=== PATIENT | male | born 1990 | race Caucasian/White ===

== ENCOUNTER 2017-02-19 20:09 | Emergency (ER) | payer OTHER ==
[~2017-02-19] VITALS: Ht 177.8 cm; Wt 90.7 kg
[2017-02-19 20:23] VITALS: BP 139/97
[2017-02-19] MEDS ORDERED: DIPHTH,PERTUSS(ACELL),TET TOX 0.5 ML DISP.SYRIN. VAX IM ONE (21:15)
--- NOTE | 2017-02-19 22:16 | RAD ---
CT scan of the facial bones without contrast 02/19/2017 CLINICAL HISTORY: Work injury. Nasal trauma. Nosebleed. TECHNIQUE: Unenhanced, contiguous, 0.625 mm axial sections were obtained through the facial bones and orbits. 2 mm reconstructed sagittal and axial and coronal images were obtained. One or more of the following individualized dose reduction techniques were utilized for this study: 1. Automated exposure control. 2. Adjustment of the mA and/or kV according to patient size. 3. Use of iterative reconstruction technique. FINDINGS: No facial bone fracture is seen. Both orbits are intact. The paranasal sinuses are well aerated and are clear. IMPRESSION: No facial bone fracture is seen. Electronically signed by: Emmanuel Mac MD (02/19/2017 10:12 PM) [facility]
--- NOTE | 2017-02-19 22:30 | PHYS DOC ---
Past Medical History Past Medical History: Other Additional Past Medical Histor: ITP, ADHD Past Surgical History: Other Additional Past Surgical Histo: hernia rx, R leg. Alcohol Use: None Drug Use: None Adult General Chief Complaint Chief Complaint: FACE PAIN [facility] HPI Patient is a 27 year old male who presents with nose contusion. Patient works for [employer] and states a piece of car part that was above his head hit him on the nose. Review of Systems Review of Systems Constitutional: Denies fever or chills [] Eyes: Denies change in visual acuity, redness, or eye pain [] HENT: Nose contusion. Denies nasal congestion or sore throat [] Respiratory: Denies cough or shortness of breath [] Cardiovascular: No additional information not addressed in HPI [] GI: Denies abdominal pain, nausea, vomiting, bloody stools or diarrhea [] : Denies dysuria or hematuria [] Musculoskeletal: Denies back pain or joint pain [] Integument: Denies rash or skin lesions [] Neurologic: Denies headache, focal weakness or sensory changes [] Endocrine: Denies polyuria or polydipsia [] Current Medications Current Medications Current Medications Medications (Trade) Dose Ordered Sig/Jb Start Time Stop Time Status Last Admin Dose Admin Diphtheria/ Tetanus/Acell Pertussis (Boostrix) 0.5 ml ONCE ONCE 02/19/17 21:15 02/19/17 21:16 DC 02/19/17 20:58 0.5 ML Allergies Allergies Allergies Coded Allergies Type Severity Reaction Last Updated Verified No Known Drug Allergies 02/19/17 No Physical Exam Physical Exam Constitutional: Well developed, well nourished, no acute distress, non-toxic appearance. [] HENT: Normocephalic, atraumatic, bilateral external ears normal, oropharynx moist, no oral exudates, nasal bridge with mild swelling Eyes: PERRLA, EOMI, conjunctiva normal, no discharge. [] Neck: Normal range of motion, no tenderness, supple, no stridor. [] Cardiovascular:Heart rate regular rhythm, no murmur [] Lungs & Thorax: Bilateral breath sounds clear to auscultation [] Abdomen: Bowel sounds normal, soft, no tenderness, no masses, no pulsatile masses. [] Skin: Warm, dry, no erythema, no rash. [] Back: No tenderness, no CVA tenderness. [] Extremities: No tenderness, no cyanosis, no clubbing, ROM intact, no edema. [] Neurologic: Alert and oriented X 3, normal motor function, normal sensory function, no focal deficits noted. [] Psychologic: Affect normal, judgement normal, mood normal. [] Current Patient Data Vital Signs Vital Signs Date Time Temp Pulse Resp B/P (MAP) Pulse Ox O2 Delivery O2 Flow Rate FiO2 02/19/17 20:23 98.1 113 22 100 Room Air 98.1 EKG EKG [] Radiology/Procedures Radiology/Procedures []PROCEDURE: CT MAXILLOFACIAL WO CONTRAST CT scan of the facial bones without contrast 02/19/2017 CLINICAL HISTORY: Work injury. Nasal trauma. Nosebleed. TECHNIQUE: Unenhanced, contiguous, 0.625 mm axial sections were obtained through the facial bones and orbits. 2 mm reconstructed sagittal and axial and coronal images were obtained. One or more of the following individualized dose reduction techniques were utilized for this study: 1. Automated exposure control. 2. Adjustment of the mA and/or kV according to patient size. 3. Use of iterative reconstruction technique. FINDINGS: No facial bone fracture is seen. Both orbits are intact. The paranasal sinuses are well aerated and are clear. IMPRESSION: No facial bone fracture is seen. Electronically signed by: Emmanuel Pereira MD (02/19/2017 10:12 PM) [facility] DICTATED and SIGNED BY: EMMANUEL PEREIRA MD DATE: 02/19/172209 CC: GABRIELLA MUNOZ APRN; NO PCP; NON,STAFF ~ Course & Med Decision Making Course & Med Decision Making Pertinent Labs and Imaging studies reviewed. (See chart for details) Patient has nose contusion after being hit by a car part at work ([employer]), CT of the maxillary facial was negative for any acute findings. Instructed to apply ice to the affected area. Tylenol Motrin for pain. Follow-up with primary care doctor in 1-2 weeks. Dragon Disclaimer Dragon Disclaimer This electronic medical record was generated, in whole or in part, using a voice recognition dictation system. Departure Departure Impression: Primary Impression: Contusion of nose, initial encounter Disposition: HOME, SELF-CARE Condition: STABLE Referrals: NO PCP (PCP) Follow-up with your doctor in one week Patient Instructions: Contusion, [id number] Additional Instructions: You were seen for nose contusion. Your CT of the maxillofacial was negative for any acute findings. Ice the affected area. Take Tylenol/ Motrin for pain. Follow -up with your doctor in 1-2 weeks. GABRIELLA MUNOZ APRN Feb 19, 2017 22:30
== END 2017-02-19 22:40 | disposition home or self-care (01) ==
LOC: ER 20:09
DX: S00.33XA Contusion of nose, initial encounter (principal); F90.9 Attention-deficit hyperactivity disorder, unspecified type; W22.8XXA Striking against or struck by other objects, initial encounter; Y93.89 Activity, other specified; Y99.8 Other external cause status; Y92.89 Other specified places as the place of occurrence of the external cause
CPT/HCPCS: 70486; 90471; 90715; 99284-25

== ENCOUNTER 2020-02-07 20:26 | Emergency (ER) | payer BC, OTHER ==
[~2020-02-07] VITALS: Ht 177.8 cm; Wt 90.9 kg
[2020-02-07 20:44] VITALS: BP 170/100
--- NOTE | 2020-02-07 20:57 | PHYS DOC ---
Past Medical History Past Medical History: Other Additional Past Medical Histor: ITP, ADHD Past Surgical History: Other Additional Past Surgical Histo: hernia rx, R leg. Smoking Status: Never Smoker Alcohol Use: None Drug Use: None General Adult EDM: Chief Complaint: SHOULDER INJURY HPI: HPI: Patient is a 29 year old M who presents with right shoulder pain s/p fall this afternoon. Patient states that he slipped on some rocks and fell backwards with his right arm outstreched. He is complaining of a constant, dull ache that he rates 3/10. He reports some radiation of the pain down the back of his right arm and the pain is worse with movement. He denies taking any pain medication before arriviing. Review of Systems: Review of Systems: Constitutional: Denies fever or chills Eyes: Denies redness or eye pain HENT: Denies nasal congestion or sore throat Respiratory: Denies cough or shortness of breath Cardiovascular: Denies chest pain or palpitations GI: Denies abdominal pain, nausea, or vomiting : Denies dysuria or hematuria Musculoskeletal: Denies back pain; reports shoulder pain Integument: Denies rash or skin lesions Neurologic: Denies headache or sensory changes Complete systems were reviewed and found to be within normal limits, except as documented in this note. Allergies: Allergies: Allergies Coded Allergies Type Severity Reaction Last Updated Verified No Known Drug Allergies 02/19/17 No Physical Exam: PE: Constitutional: Well developed, well nourished HENT: Normocephalic, atraumatic Eyes: Conjunctiva normal, no discharge Neck: Normal range of motion, supple Lungs & Thorax: No respiratory distress, equal chest rise and fall Abdomen: Soft, no tenderness Skin: Warm, dry, no erythema Back: No tenderness, no CVA tenderness Extremities: Tenderness to palpation of anterior right shoulder. ROM limited due to pain in flexion and extension. UE pulses +2/2 b/l. Sensation intact b/l. Cap refill >2 sec b/l. Neurologic: Alert and oriented X 3, no focal deficits noted Psychologic: Affect normal, judgment normal Current Patient Data: Vital Signs: Vital Signs Date Time Temp Pulse Resp B/P (MAP) Pulse Ox O2 Delivery O2 Flow Rate FiO2 02/07/20 20:44 98.1 107 20 170/100 (123) 98 Room Air 98.1 EKG: EKG: [] Radiology/Procedures: Radiology/Procedures: PROCEDURE: SHOULDER 2+V RIGHT RIGHT SHOULDER , 3 VIEWS Clinical Indication: Reason: pain s/p fall / Spl. Instructions: / History: Comparison: None. Findings: There is subtle lucency of the greater tuberosity and there may be nondisplaced fracture. There is no dislocation. The acromioclavicular and glenohumeral joints are intact. The visualized lung is clear. There is no evidence of a displaced rib fracture. There is no soft tissue abnormality. IMPRESSION: Subtle lucency of the greater tuberosity may be nondisplaced fracture. Electronically signed by: Sukhdeep Mesa MD (02/07/2020 9:05 PM) [facility] Course & Med Decision Making: Course & Med Decision Making 29 yo M presented to the emergency department for right shoulder pain s/p fall. Shoulder XR inconclusive for fracture. Pt placed in shoulder immobilizer and referred to outpatient orthopedic surgery for follow-up. Pain controlled with toradol. Patient stable for discharge with outpatient follow-up with PCP. Discussed findings and plan with patient, who acknowledges understanding and agreement. [] Dragon Disclaimer: Dragon Disclaimer: This electronic medical record was generated, in whole or in part, using a voice recognition dictation system. Departure Departure Impression: Primary Impression: Shoulder injury Qualified Codes: S49.91XA - Unspecified injury of right shoulder and upper arm, initial encounter Disposition: 01 DC HOME SELF CARE/HOMELESS Condition: STABLE ( ) Referrals: NO PCP (PCP) PEG FERGUSON MD Patient Instructions: Shoulder Fract[facility] ([facility]ximal Humerus or Glenoid[facility] Additional Instructions: There are subtle findings concerning for a "hairline" fracture. Please remain in shoulder immobilizer and follow closely with general surgeon for further evaluation. Scripts Orphenadrine Citrate (ORPHENADRINE CITRATE) 100 Mg Tablet.er 100 MG PO BID, #14 TAB Prov: CIRA GUARDADO DO 02/07/20 Hydrocodone/Apap 5-325 (NORCO 5-325 TABLET) 1 Each Tablet 0.5-1 TAB PO PRN Q6HRS PRN for PAIN, #10 TAB 0 Refills Prov: CIRA GUARDADO DO 02/07/20 CIRA GUARDADO DO Feb 07, 2020 20:57
[2020-02-07] MEDS ORDERED: KETOROLAC 30 MG/ML VIAL. IM ONE (21:00)
--- NOTE | 2020-02-07 21:08 | RAD ---
RIGHT SHOULDER , 3 VIEWS Clinical Indication: Reason: pain s/p fall / Spl. Instructions: / History: Comparison: None. Findings: There is subtle lucency of the greater tuberosity and there may be nondisplaced fracture. There is no dislocation. The acromioclavicular and glenohumeral joints are intact. The visualized lung is clear. There is no evidence of a displaced rib fracture. There is no soft tissue abnormality. IMPRESSION: Subtle lucency of the greater tuberosity may be nondisplaced fracture. Electronically signed by: Sukhdeep Mesa MD (02/07/2020 9:05 PM) [facility]
[2020-02-07] MEDS ORDERED: HYDR-3164 PO (21:16)
[2020-02-07] MEDS ORDERED: ORPH100T PO (21:16)
== END 2020-02-07 21:32 | disposition home or self-care (01) ==
LOC: ER 20:26
DX: S49.81XA Other specified injuries of right shoulder and upper arm, initial encounter (principal); R20.2 Paresthesia of skin; F90.9 Attention-deficit hyperactivity disorder, unspecified type; Z98.890 Other specified postprocedural states; W01.0XXA Fall on same level from slipping, tripping and stumbling without subsequent striking against object, initial encounter; Y93.89 Activity, other specified; Y92.89 Other specified places as the place of occurrence of the external cause; Y99.8 Other external cause status
CPT/HCPCS: 29105; 73030; 96372; 99284; A4565; J1885